=== PATIENT | female | born 1980 | race Caucasian/White ===

== ENCOUNTER 2020-08-15 09:39 | Inpatient (IN) ==
[2020-08-15] MEDS ORDERED: Ondansetron 4 MG/2 ML VIAL IVP PRN (11:35)
[2020-08-15] MEDS ORDERED: Naloxone 0.4 MG/ML INJ IVP PRN (11:35)
[2020-08-15] MEDS ORDERED: Ipratropium/Albuterol Neb 3 ML IH PRN (11:37)
[2020-08-15] MEDS ORDERED: Benzonatate 100 MG CAPSULE PO PRN (11:56)
[2020-08-15] MEDS ORDERED: Ringers Solution, Lactated 1,000 ML ONE (12:02)
[2020-08-15] MEDS: Ringers Solution, Lactated 1,000 ML IVC SCH ×2 (12:10→20:55)
[2020-08-15] MEDS: Nicotine 21 MG PATCH.TD24 TD SCH (12:55)
[2020-08-15] MEDS: Acetaminophen 325 MG TABLET PO PRN ×2 (12:55→20:18)
[2020-08-15] MEDS: Piperacillin/Tazobactam 3.375 GM in 0.9 % Sodium Chloride Mini Bag 100 ML IVPB SCH ×2 (16:29→23:17)
[2020-08-15] MEDS ORDERED: 0.9 % Sodium Chloride 250 ML IVC ONE (19:11)
[2020-08-15] MEDS: Melatonin 3 MG TABLET PO PRN (20:19)
[2020-08-16 00:07] LABS: Hematocrit 29.2 % (35.3-44.9); Hemoglobin 9.2 g/dL (11.5-15.4); Mean Corpuscular HGB Conc 31.5 g/dL (31.6-35.5); Mean Corpuscular Hemoglobin 24.9 pg (28.0-33.3); Mean Corpuscular Volume 78.9 fL (83.0-100.0); Mean Platelet Volume 9.1 fL (9.4-12.4); Platelet Count 256 K/mcL (140-400); Red Cell Distribution Width 16.1 % (11.5-14.5); White Blood Count 10.6 K/mcL (4.3-11.1)
[2020-08-16] MEDS ORDERED: 0.9 % Sodium Chloride 1,000 ML IVC ONE ×3 (00:24→10:57)
[2020-08-16 00:26] LABS: Calcium 6.7 mg/dL (8.6-10.3); Potassium 3.8 mEq/L (3.5-5.1)
[2020-08-16] MEDS: Acetaminophen 325 MG TABLET PO PRN (02:20)
[2020-08-16 02:45] LABS: Anisocytosis 1+ (Not Present); Poikilocytosis 3+ (Not Present)
[2020-08-16 02:46] LABS: Platelet Estimate Normal (Normal)
[2020-08-16 02:49] LABS: Eosinophils # 0.2 K/mcL (0.0-0.6); Lymphocytes # 0.2 K/mcL (0.6-4.6); Monocytes # 0.6 K/mcL (0.0-1.3); Neutrophils # 7.4 K/mcL (1.6-8.9)
[2020-08-16] MEDS ORDERED: *HR* HYDROcodone/Acet 5/325 mg TABLET PO ONE (05:09)
[2020-08-16] MEDS: Ringers Solution, Lactated 1,000 ML IVC SCH (07:42)
[2020-08-16] MEDS: Nicotine 21 MG PATCH.TD24 TD SCH (07:44)
[2020-08-16] MEDS: Piperacillin/Tazobactam 3.375 GM in 0.9 % Sodium Chloride Mini Bag 100 ML IVPB SCH ×2 (08:01→17:02)
[2020-08-16] MEDS ORDERED: Acetaminophen 325 MG TABLET PO PRN (09:04)
[2020-08-16 12:00] LABS: Hematocrit 25.5 % (35.3-44.9); Hemoglobin 7.9 g/dL (11.5-15.4)
[2020-08-16 12:40] LABS: Amphetamine Screen,Urine Positive ng/mL (Cutoff=1000); Barbiturate Screen,Urine Negative ng/mL (Cutoff=200); Benzodiazepines Screen,Urine Negative ng/mL (Cutoff=200); Cannabinoid Screen,Urine Negative ng/mL (Cutoff = 50); Cocaine Screen,Urine Negative ng/mL (Cutoff= 300); Opiate Screen,Urine Negative ng/mL (Cutoff=300); Phencyclidine Screen,Urine Negative ng/mL (Cutoff=25)
[2020-08-16] MEDS ORDERED: 0.9 % Sodium Chloride 250 ML IVC SCH (13:00)
[2020-08-16] MEDS ORDERED: Ringers Solution, Lactated 1,000 ML IVC ONE (14:30)
[2020-08-16 14:34] LABS: Bacteria,Urine Few per hpf (None-Few); Bilirubin,Urine Negative (Negative); Blood,Urine Moderate (Negative); Clarity,Urine Turbid (Clear); Color,Urine Yellow (Yellow); Glucose,Urine (UA) 30 mg/dL (Normal); Ketones,Urine Negative (Negative); Leukocyte Esterase,Urine Large (Negative); Mucus,Urine Few per lpf (None-Few); Nitrite,Urine Negative (Negative); Protein,Urine 100 mg/dL (Neg-Trace); Specific Gravity,Urine 1.017 (1.010-1.025); Squamous Epithelial Cell,Urine Few per hpf (None-Few); Urobilinogen,Urine Normal (Normal); WBC,Urine 15-30 per hpf (0-3)
[2020-08-16] MEDS ORDERED: Ringers Solution, Lactated 1,000 ML ONE (14:37)
[2020-08-16] MEDS ORDERED: Vancomycin 1 EACH in 0.9 % Sodium Chloride 250 ML IVPB PRN (15:00)
[2020-08-16] MEDS ORDERED: Azithromycin 500 MG in 0.9 % Sodium Chloride 250 ML IVPB SCH (15:00)
[2020-08-16] MEDS: *HR* OxyCODONE Immed Rel 5 MG TABLET PO PRN (16:08)
[2020-08-16 16:18] LABS: Protein/Creatinine Ratio,Urine 1.72 mg/mg (0.00-0.20); Sodium, Urine 45.8 mEq/L
[2020-08-16] MEDS: Albumin Human 5% 12.5 GM/250 ML IV.SOLN IVC SCH ×2 (16:28→20:12)
[2020-08-16 16:29] LABS: VBG Ionized Calcium 0.74 mmol/L (1.15-1.35)
[2020-08-16 16:30] LABS: Hematocrit 29.2 % (35.3-44.9); Hemoglobin 8.8 g/dL (11.5-15.4); Mean Corpuscular HGB Conc 30.1 g/dL (31.6-35.5); Mean Corpuscular Hemoglobin 24.5 pg (28.0-33.3); Mean Corpuscular Volume 81.3 fL (83.0-100.0); Mean Platelet Volume 9.5 fL (9.4-12.4); Monocytes # 0.2 K/mcL (0.0-1.3); Platelet Count 210 K/mcL (140-400); Red Blood Count 3.59 M/mcL (3.82-4.97); Red Cell Distribution Width 16.5 % (11.5-14.5); White Blood Count 7.7 K/mcL (4.3-11.1)
[2020-08-16 16:57] LABS: Iron < 10 mcg/dL (50-170); Transferrin 172 mg/dL (203-362); Vancomycin,Random 9 mcg/mL
[2020-08-16 17:01] LABS: Basophils # 0.2 K/mcL (0.0-0.2); Lymphocytes # 1.1 K/mcL (0.6-4.6); Neutrophils # 6.3 K/mcL (1.6-8.9); Platelet Clumps Few (Not Present); Platelet Estimate Normal (Normal); Toxic Granulation Present (Not Present)
[2020-08-16 17:02] LABS: Anisocytosis 1+ (Not Present); Ovalocytes 1+ (Not Present)
[2020-08-16] MEDS: 0.9 % Sodium Chloride 1,000 ML IVC SCH ×2 (17:03→19:22)
[2020-08-16 17:04] LABS: Acanthocytes 2+ (Not Present); Microcytosis Present (Not Present)
[2020-08-16 17:08] LABS: Albumin 2.6 g/dL (3.5-5.7); Albumin/Globulin Ratio 1.1 (1.1-2.2); Bilirubin,Total 0.5 mg/dL (0.3-1.0); Globulin 2.4 g/dL (2.4-3.5); Magnesium 1.2 mg/dL (1.6-2.6); Phosphorous 3.5 mg/dL (2.7-4.5); Potassium 3.6 mEq/L (3.5-5.1)
[2020-08-16 17:16] LABS: Hepatitis B Surface Antigen Nonreactive (Nonreactive)
[2020-08-16 17:28] LABS: Uric Acid 5.9 mg/dL (2.3-7.6)
[2020-08-16 17:44] LABS: Hepatitis B Core IgM Nonreactive (Nonreactive)
[2020-08-16 17:46] LABS: HIV-1&2 Antibody & p24 Ag Nonreactive (Nonreactive); Hepatitis A Antibody IgM Nonreactive (Nonreactive)
[2020-08-16] MEDS: Calcium Gluconate 1gm/50mL 1 GM/50 ML BAG IVPB PRN ×3 (17:49→19:21)
[2020-08-16] MEDS: *HR* Heparin 5,000 UNIT/ML VIAL SQ SCH (18:18)
[2020-08-16 19:08] LABS: Adenovirus F 40/41 PCR Not detected (Not detect); Astrovirus PCR Not detected (Not detect); C.difficile Toxin A/B Gene PCR Not detected (Not detect); Campylobacter by PCR Not detected (Not detect); Cryptosporidium by PCR Not detected (Not detect); Cyclospora cayetanensis PCR Not detected (Not detect); E. coli O157 by PCR Not detected (Not detect); Entamoeba histolytica PCR Not detected (Not detect); Enteroaggregative E.coli(EAEC) Not detected (Not detect); Enteropathogenic E.coli(EPEC) DETECTED (Not detect); Enterotoxigenic E.coli (ETEC) Not detected (Not detect); Norovirus GI/GII PCR Not detected (Not detect); Plesiomonas shigelloides PCR Not detected (Not detect); Rotavirus A PCR Not detected (Not detect); Salmonella PCR Not detected (Not detect); Sapovirus PCR Not detected (Not detect); Shig/EnteroinvasiveE coli EIEC Not detected (Not detect); Shigalike tox-prod E coli STEC Not detected (Not detect); Vibrio PCR Not detected (Not detect); Vibrio cholerae PCR Not detected (Not detect); Yersinia enterocolitica PCR Not detected (Not detect)
[2020-08-16 19:11] LABS: Giardia lamblia PCR DETECTED (Not detect)
[2020-08-16 21:19] LABS: Hepatitis C Virus Antibody Reactive (Nonreactive)
[2020-08-16] MEDS: MetroNIDAZOLE 500 MG/100 ML 500 MG/100 ML BAG IVPB SCH (23:31)
[2020-08-17] MEDS: *HR* OxyCODONE Immed Rel 5 MG TABLET PO PRN ×4 (02:44→22:06)
[2020-08-17 03:51] LABS: Hematocrit 23.3 % (35.3-44.9); Hemoglobin 7.2 g/dL (11.5-15.4); Mean Corpuscular HGB Conc 30.9 g/dL (31.6-35.5); Mean Corpuscular Hemoglobin 24.7 pg (28.0-33.3); Mean Corpuscular Volume 80.1 fL (83.0-100.0); Mean Platelet Volume 9.5 fL (9.4-12.4); Platelet Count 196 K/mcL (140-400); Red Blood Count 2.91 M/mcL (3.82-4.97); Red Cell Distribution Width 16.7 % (11.5-14.5); White Blood Count 7.3 K/mcL (4.3-11.1)
[2020-08-17 03:52] LABS: VBG Ionized Calcium 0.92 mmol/L (1.15-1.35)
[2020-08-17 04:03] LABS: Complement C3 77 mg/dL (87-200)
[2020-08-17 04:05] LABS: Albumin 2.4 g/dL (3.5-5.7); Albumin/Globulin Ratio 1.1 (1.1-2.2); Bilirubin,Direct 0.2 mg/dL (0.0-0.2); Bilirubin,Indirect 0.3 mg/dL (0.0-1.0); Bilirubin,Total 0.5 mg/dL (0.3-1.0); Calcium 6.4 mg/dL (8.6-10.3); Globulin 2.1 g/dL (2.4-3.5); Magnesium 1.8 mg/dL (1.6-2.6); Potassium 3.4 mEq/L (3.5-5.1); Total Protein 4.5 g/dL (6.4-8.9)
[2020-08-17 04:20] LABS: Acanthocytes 2+ (Not Present); Anisocytosis 1+ (Not Present); Lymphocytes # 0.7 K/mcL (0.6-4.6); Neutrophils # 6.4 K/mcL (1.6-8.9); Platelet Estimate Normal (Normal); Poikilocytosis 1+ (Not Present); Reactive Lymphocytes Present (Not Present); Toxic Granulation Present (Not Present)
[2020-08-17] MEDS: Calcium Gluconate 1gm/50mL 1 GM/50 ML BAG IVPB PRN ×2 (04:59→08:55)
[2020-08-17] MEDS: *HR* Heparin 5,000 UNIT/ML VIAL SQ SCH ×2 (04:59→17:42)
[2020-08-17] MEDS ORDERED: *HR* Metoprolol 5 MG/5 ML VIAL IVP ONE (05:20)
[2020-08-17] MEDS ORDERED: Potassium Chloride 40 MEQ/200 ML BAG IVPB PRN (05:37)
[2020-08-17] MEDS ORDERED: Piperacillin/Tazobactam 3.375 GM in 0.9 % Sodium Chloride Mini Bag 100 ML IVPB SCH (06:00)
[2020-08-17] MEDS: MetroNIDAZOLE 500 MG/100 ML 500 MG/100 ML BAG IVPB SCH (08:03)
[2020-08-17 08:18] LABS: Eosinophils # 0.1 K/mcL (0.0-0.6); Hematocrit 25.4 % (35.3-44.9); Hemoglobin 7.9 g/dL (11.5-15.4); Mean Corpuscular HGB Conc 31.1 g/dL (31.6-35.5); Mean Corpuscular Hemoglobin 24.9 pg (28.0-33.3); Mean Corpuscular Volume 80.1 fL (83.0-100.0); Mean Platelet Volume 9.6 fL (9.4-12.4); Platelet Count 206 K/mcL (140-400); Red Blood Count 3.17 M/mcL (3.82-4.97); Red Cell Distribution Width 16.4 % (11.5-14.5); White Blood Count 7.3 K/mcL (4.3-11.1)
[2020-08-17 08:20] LABS: ABG Ionized Calcium 0.98 mmol/L (1.15-1.35)
[2020-08-17 08:38] LABS: Magnesium 2.4 mg/dL (1.6-2.6); Potassium 3.9 mEq/L (3.5-5.1)
[2020-08-17] MEDS: Nicotine 21 MG PATCH.TD24 TD SCH (09:04)
[2020-08-17 09:08] LABS: Lymphocytes # 1.4 K/mcL (0.6-4.6); Monocytes # 0.1 K/mcL (0.0-1.3); Neutrophils # 5.8 K/mcL (1.6-8.9)
[2020-08-17 09:11] LABS: Acanthocytes 2+ (Not Present); Anisocytosis 1+ (Not Present); Platelet Estimate Normal (Normal); Polychromasia 1+ (Not Present); Reactive Lymphocytes Present (Not Present); Toxic Granulation Present (Not Present)
[2020-08-17 09:12] LABS: Poikilocytosis 1+ (Not Present)
[2020-08-17] MEDS: Acetaminophen 325 MG TABLET PO PRN (12:14)
[2020-08-17] MEDS: 0.9 % Sodium Chloride 1,000 ML IVC SCH ×2 (12:15→20:15)
[2020-08-17] MEDS: cefTRIAXone 2,000 MG in Water for inj. (sterile) 20 ML IVP SCH (14:40)
[2020-08-17] MEDS: metroNIDAZOLE 250 MG TABLET PO SCH ×2 (14:41→22:05)
[2020-08-17 19:41] LABS: Hematocrit 25.5 % (35.3-44.9); Hemoglobin 7.9 g/dL (11.5-15.4)
[2020-08-18] MEDS: *HR* OxyCODONE Immed Rel 5 MG TABLET PO PRN ×3 (04:10→18:26)
[2020-08-18 06:08] LABS: Basophils % 0.4 %; Eosinophils # 0.1 K/mcL (0.0-0.6); Eosinophils % 2.5 %; Hematocrit 26.8 % (35.3-44.9); Hemoglobin 8.2 g/dL (11.5-15.4); Lymphocytes # 1.2 K/mcL (0.6-4.6); Lymphocytes % 22.8 %; Mean Corpuscular HGB Conc 30.6 g/dL (31.6-35.5); Mean Corpuscular Hemoglobin 24.3 pg (28.0-33.3); Mean Corpuscular Volume 79.3 fL (83.0-100.0); Monocytes # 0.5 K/mcL (0.0-1.3); Monocytes % 10.5 %; Neutrophils # 3.2 K/mcL (1.6-8.9); Platelet Count 211 K/mcL (140-400); Red Blood Count 3.38 M/mcL (3.82-4.97); Red Cell Distribution Width 16.9 % (11.5-14.5); Segmented Neutrophils % 62.8 %; White Blood Count 5.1 K/mcL (4.3-11.1)
[2020-08-18] MEDS: *HR* Heparin 5,000 UNIT/ML VIAL SQ SCH ×2 (06:09→17:30)
[2020-08-18 06:24] LABS: Calcium 7.4 mg/dL (8.6-10.3)
[2020-08-18] MEDS: metroNIDAZOLE 250 MG TABLET PO SCH ×2 (08:19→15:12)
[2020-08-18] MEDS: Nicotine 21 MG PATCH.TD24 TD SCH (10:31)
[2020-08-18] MEDS: 0.9 % Sodium Chloride 1,000 ML IVC SCH ×2 (10:43→18:26)
[2020-08-18] MEDS ORDERED: 0.9 % Sodium Chloride 500 ML ONE (11:41)
[2020-08-18] MEDS ORDERED: *HR* Heparin 5,000 UNIT/ML VIAL ONE (11:50)
[2020-08-18] MEDS: cefTRIAXone 2,000 MG in Water for inj. (sterile) 20 ML IVP SCH (15:12)
[2020-08-18] MEDS: Acetaminophen 325 MG TABLET PO PRN (15:21)
[2020-08-19] MEDS: Melatonin 3 MG TABLET PO PRN (00:35)
[2020-08-19] MEDS: metroNIDAZOLE 250 MG TABLET PO SCH ×2 (00:35→09:38)
[2020-08-19] MEDS: *HR* OxyCODONE Immed Rel 5 MG TABLET PO PRN (00:35)
[2020-08-19] MEDS: 0.9 % Sodium Chloride 1,000 ML IVC SCH ×2 (00:36→12:44)
[2020-08-19 04:58] LABS: Calcium 7.6 mg/dL (8.6-10.3); Potassium 3.7 mEq/L (3.5-5.1)
[2020-08-19] MEDS: *HR* Heparin 5,000 UNIT/ML VIAL SQ SCH (05:56)
[2020-08-19] MEDS ORDERED: *HR* Heparin 10,000 UNIT/10 ML VIAL IV PRN (08:06)
[2020-08-19] MEDS ORDERED: 0.9 % Sodium Chloride 250 ML IVC PRN (08:06)
[2020-08-19] MEDS ORDERED: 0.9 % Sodium Chloride 1,000 ML PRIME SCH (08:15)
[2020-08-19] MEDS: Nicotine 21 MG PATCH.TD24 TD SCH (09:38)
[2020-08-19 09:54] LABS: Basophils % 0.5 %; Eosinophils # 0.2 K/mcL (0.0-0.6); Eosinophils % 4.4 %; Hematocrit 28.7 % (35.3-44.9); Immature Granulocytes % 1.6 % (0-4); Lymphocytes # 1.3 K/mcL (0.6-4.6); Lymphocytes % 30.1 %; Mean Corpuscular HGB Conc 31.4 g/dL (31.6-35.5); Mean Corpuscular Hemoglobin 25.1 pg (28.0-33.3); Mean Corpuscular Volume 80.2 fL (83.0-100.0); Mean Platelet Volume 9.3 fL (9.4-12.4); Monocytes # 0.7 K/mcL (0.0-1.3); Monocytes % 15.9 %; Platelet Count 213 K/mcL (140-400); Red Blood Count 3.58 M/mcL (3.82-4.97); Red Cell Distribution Width 17.2 % (11.5-14.5); Segmented Neutrophils % 47.5 %; White Blood Count 4.3 K/mcL (4.3-11.1)
[2020-08-19 10:12] LABS: Calcium 7.5 mg/dL (8.6-10.3); Potassium 3.7 mEq/L (3.5-5.1)
[2020-08-19 12:19] VITALS: BP 129/74
[2020-08-19] MEDS ORDERED: Melatonin 3 MG TABLET PO PRN (12:38)
[2020-08-19] MEDS ORDERED: Ipratropium/Albuterol Neb 3 ML IH PRN (12:38)
[2020-08-19] MEDS ORDERED: Acetaminophen 325 MG TABLET PO PRN (12:38)
[2020-08-19] MEDS ORDERED: Naloxone 0.4 MG/ML INJ IVP PRN (12:38)
[2020-08-19] MEDS ORDERED: 0.9 % Sodium Chloride 1,000 ML IVC SCH (12:38)
[2020-08-19] MEDS ORDERED: *HR* OxyCODONE Immed Rel 5 MG TABLET PO PRN (12:38)
[2020-08-19] MEDS ORDERED: Ondansetron 4 MG/2 ML VIAL IVP PRN (12:38)
[2020-08-19] MEDS ORDERED: metroNIDAZOLE 250 MG TABLET PO SCH (15:00)
[2020-08-19] MEDS ORDERED: cefTRIAXone 2,000 MG in Water for inj. (sterile) 20 ML IVP SCH (15:00)
[2020-08-19] MEDS ORDERED: *HR* Heparin 5,000 UNIT/ML VIAL SQ SCH (18:00)
[2020-08-20] MEDS ORDERED: Nicotine 21 MG PATCH.TD24 TD SCH (09:00)
== END 2020-08-19 15:59 | disposition left against medical advice (07) | DRG 720 ==
LOC: 3ANU → SUATTDRO 11:23 → ICNU 08-16 14:00 → 2ANU 08-18 21:37
PROVIDERS: ADMIT Internal Medicine; ATTEND Pediatrics